=== PATIENT | female | born 1955 | race Caucasian/White ===

== ENCOUNTER 2025-06-27 12:57 | Emergency (ER) | payer MEDICARE, MEDICAID ==
[~2025-06-27] VITALS: Ht 167.6 cm; Wt 86.0 kg
[2025-06-27 15:15] VITALS: BP 134/81; O2SAT 94
[2025-06-27 15:27] VITALS: TEMP 96.6
== END 2025-06-27 15:59 | disposition left against medical advice (07) ==
LOC: M ED 12:57
DX: Z53.21 Procedure and treatment not carried out due to patient leaving prior to being seen by health care provider (principal)